=== PATIENT | female | born 1990 | race Caucasian/White ===

== ENCOUNTER → 2018-05-13 | Outpatient (CLI) | payer MEDICAID ==
[2018-05-13 11:54] LABS: HEMATOCRIT 41.4 % (37.0-47.0); HEMOGLOBIN 13.9 g/dl (12.5-16.0); MEAN CELL VOLUME 85 fl (80.0-100.0); MEAN CORPUSCULAR HEMOGLOBIN 29 pg (27.0-31.0); MEAN CORPUSCULAR HGB CONC 34 g/dl (33.0-37.0); MEAN PLATELET VOLUME 11.4 fl (7.4-10.4); PLATELET COUNT 249 K/mm3 (130-400); RED BLOOD COUNT 4.87 M/mm3 (4.10-5.30); REDCELL DISTRIBUTION WIDTH-CV 13.3 % (11.5-14.5)
[2018-05-13 12:17] LABS: ALBUMIN 4.1 gm/dL (3.5-5.0); BILIRUBIN,TOTAL 0.5 mg/dL (0.0-1.0); CALCIUM 9.3 mg/dL (8.4-10.2); CREATININE, serum 0.61 mg/dL (0.52-1.25); TOTAL PROTEIN 7.3 gm/dL (6.4-8.2)
[2018-05-13 12:48] LABS: THYROID STIMULATING HORMONE 1.04 uIU/mL (0.465-4.680)
== END ==
LOC: COL.LAB 11:00
PROVIDERS: Advanced Practice Midwife
DX: R53.83 Other fatigue (principal)

== ENCOUNTER 2018-07-07 12:10 | Emergency (ER) | payer MEDICAID ==
[~2018-07-07] VITALS: Ht 162.6 cm; Wt 77.3 kg
[2018-07-07 12:13] VITALS: BP 140/91; TEMP 98.2
[2018-07-07] MEDS ORDERED: PLAQUENIL 200M200 MG PO (13:07)
[2018-07-07] MEDS ORDERED: CURCUMIN95% (13:07)
[2018-07-07] MEDS ORDERED: PREDNISONE20 MG PO (13:50)
[2018-07-07 14:22] VITALS: PULSE 87
== END 2018-07-07 14:22 | disposition home or self-care (01) ==
LOC: COL.ER 12:10
DX: R07.81 Pleurodynia (principal); Z87.891 Personal history of nicotine dependence; Z88.0 Allergy status to penicillin

== ENCOUNTER → 2018-08-04 | Outpatient (CLI) | payer MEDICAID ==
[~2018-08-04] MED LIST: CURCUMIN95%; PLAQUENIL 200M200 MG PO; PREDNISONE20 MG PO
== END ==
LOC: COL.LAB 07:56
DX: I73.00 Raynaud's syndrome without gangrene (principal)